=== PATIENT | female | born 1985 | race Caucasian/White ===

== ENCOUNTER 2016-05-19 13:51 | Emergency (ER) | payer SELFPAY ==
[2016-05-19] MEDS ORDERED: ACETAMINOPHEN 325 MG TABLET PO ONE (14:01)
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
[2016-05-19 17:26] VITALS: BP 107/59
== END 2016-05-19 17:26 | disposition home or self-care (01) ==
LOC: ER 13:51
DX: M25.511 Pain in right shoulder (principal); X50.0XXA Overexertion from strenuous movement or load, initial encounter; Y93.B3 Activity, free weights; Y92.39 Other specified sports and athletic area as the place of occurrence of the external cause; Z87.828 Personal history of other (healed) physical injury and trauma; J45.909 Unspecified asthma, uncomplicated
CPT/HCPCS: 99283

== ENCOUNTER 2016-12-08 23:08 | Emergency (ER) | payer SELFPAY ==
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
[2016-12-09 00:07] LABS: ABSOLUTE EOSINOPHILS # (AUTO) 0.1 10^3/uL (0.0-0.6); ABSOLUTE LYMPHOCYTES (AUTO) 1.2 10^3/uL (0.5-4.7); ABSOLUTE MONOCYTES (AUTO) 0.9 10^3/uL (0.1-1.4); ABSOLUTE NEUT (AUTO) 8.5 10^3/uL (1.7-8.2); BASOPHILS % (AUTO) 0.3 % (0-2); EOSINOPHILS % (AUTO) 0.5 % (0-6); HEMATOCRIT 38.5 % (36.0-47.0); HEMOGLOBIN 12.9 g/dL (12.0-15.5); HGB HCT DIFFERENCE 0.2; LYMPHOCYTES % (AUTO) 11.3 % (13-45); MEAN CORPUSCULAR HEMOGLOBIN 30.4 pg (27.0-33.4); MEAN CORPUSCULAR HGB CONC 33.5 g/dL (32.0-36.0); MEAN CORPUSCULAR VOLUME 91 fl (80-97); MONOCYTES % (AUTO) 8.6 % (3-13); RED BLOOD COUNT 4.23 10^6/uL (3.72-5.28); RED CELL DISTRIBUTION WIDTH 13.1 % (11.5-14.0); SEGMENTED NEUTROPHILS % (AUTO) 79.3 % (42-78); WHITE BLOOD COUNT 10.7 10^3/uL (4.0-10.5)
[2016-12-09 00:11] LABS: PROTHROMBIN TIME 15.2 SEC (11.4-15.4)
[2016-12-09 00:12] LABS: PARTIAL THROMBOPLASTIN TIME 44.5 SEC (23.5-35.8)
[2016-12-09 00:14] LABS: D-DIMER 0.62 ug/mL (0.00-0.50)
[2016-12-09 00:18] LABS: ALANINE AMINOTRANSFERASE 19 U/L (9-52); ALBUMIN 3.8 g/dL (3.5-5.0); ALKALINE PHOSPHATASE 64 U/L (38-126); ANION GAP 10 (5-19); ASPARTATE AMINO TRANSFERASE 14 U/L (14-36); BILIRUBIN,DIRECT 0.3 mg/dL (0.0-0.4); BILIRUBIN,TOTAL 0.8 mg/dL (0.2-1.3); BLOOD UREA NITROGEN 8 mg/dL (7-20); CALCIUM 9.6 mg/dL (8.4-10.2); CARBON DIOXIDE 30 mmol/L (22-30); CHLORIDE 96 mmol/L (98-107); CREATININE RESULT 0.79 mg/dL (0.52-1.25); GLUCOSE 107 mg/dL (75-110); POTASSIUM 3.7 mmol/L (3.6-5.0); TOTAL PROTEIN 6.8 g/dL (6.3-8.2)
[2016-12-09 01:10] LABS: APPEARANCE,URINE SLIGHTLY-CLOUDY; BILIRUBIN,URINE NEGATIVE (NEGATIVE); GLUCOSE, URINE NEGATIVE (NEGATIVE); KETONES,URINE NEGATIVE (NEGATIVE); LEUKOCYTE ESTERASE,URINE NEGATIVE (NEGATIVE); NITRITE,URINE NEGATIVE (NEGATIVE); PROTEIN,URINE NEGATIVE (NEGATIVE); URINE SPECIFIC GRAVITY 1.012; UROBILINOGEN,URINE NEGATIVE mg/dL (<2.0)
[2016-12-09 01:20] LABS: URINE BARBITURATES SCREEN NEGATIVE; URINE METHADONE SCREEN NEGATIVE; URINE OPIATES LOW UNCONFIRMED POSITIVE; URINE PHENCYCLIDINE SCREEN NEGATIVE
[2016-12-09] MEDS ORDERED: NORMAL SALINE 1000 ML 1,000 ML IV ONE (01:43)
--- NOTE | 2016-12-09 01:46 | RADIOLOGY REPORT (SQ) ---
EXAM DESCRIPTION: CTA CHEST COMPLETED DATE/TIME: 12/09/2016 1:25 am REASON FOR STUDY: lower extremity, facial edema, eval central clot COMPARISON: None. TECHNIQUE: CT scan of the chest performed using helical scanning technique with dynamic intravenous contrast injection. Images reviewed with lung, soft tissue and bone windows. Reconstructed coronal and sagittal MPR images reviewed. Additional 3 dimensional post-processing performed to develop Maximal Intensity Projection images (VT P). All images stored on PACS. All CT scanners at this facility use dose modulation, iterative reconstruction, and/or weight based d osing when appropriate to reduce radiation dose to as low as reasonably achievable (ALARA). [facility]: Dose Right [facility]: CareDose [facility]: Dose Right [facility]: Teradose 4D [facility]: [employer] CONTRAST TYPE AND DOSE: contrast/concentration: Isovue 370.00 mg/ml; Total Contrast Delivered: 100.0 ml; Total Saline Delivered: 65.1 ml RENAL FUNCTION: None required. The patient is less than 50 years old. RADIATION DOSE: 942 LIMITATIONS: As below. FINDINGS: LUNGS AND PLEURA: No masses, infiltrates, pneumothorax. No pleural effusions, calcificati ons. 0.3 cm likely benign ground-glass nodularity of the right mid lung, image 108 of series 3 ; no routine follow-up is recommended. AORTA AND GREAT VESSELS: No aneurysm or dissection. HEART: No pericardial effusion. PULMONARY ARTERIES: No emboli visualized in the main pulmonary arteries or the segmental branches. P ulmonary arterial enhancement measures 214 Hounsfield units and small streak artifact somewhat limiti ng sensitivity-specificity. HILAR AND MEDIASTINAL STRUCTURES: Mild mediastinal lymphadenopathy includes a 1.3 x 1.0 cm lymph node of the aortopulmonary fossa, image 93 of series 3. HARDWARE: None in the chest. UPPER ABDOMEN: No significant findings. Limited exam. THYROID AND OTHER SOFT TISSUES: No masses. No adenopathy. BONES: No acute or significant finding. 3D MIPS: Confirm above findings. OTHER: No other significant finding. IMPRESSION: No acute cardiopulmonary findings. NO PULMONARY EMBOLI. Limitation. COMMENT: Fleischner Criteria for Ground Glass Nodules: <6mm ground glass single nodule: No routine followup TECHNICAL DOCUMENTATION: JOB ID: [id number] Quality ID # [id number]: Final reports with documentation of one or more dose reduction techniques (e.g., Au tomated exposure control, adjustment of the mA and/or kV according to patient size, use of iterative reconstruction technique) 2010 [id number]- All Rights Reserved
--- NOTE | 2016-12-09 01:56 | RADIOLOGY REPORT (SQ) ---
EXAM DESCRIPTION: CT FACIAL AREA WITH COMPLETED DATE/TIME: 12/09/2016 1:25 am REASON FOR STUDY: r sided facial edema COMPARISON: None. TECHNIQUE: Post contrast images through the facial bones and orbits windowed for bone and soft tissu e. Additional coronal and sagittal reconstructed images reviewed. All images stored on PACS. All CT scanners at this facility use dose modulation, iterative reconstruction, and/or weight based d osing when appropriate to reduce radiation dose to as low as reasonably achievable (ALARA). [facility]: Dose Right [facility]: CareDose [facility]: Dose Right [facility]: Teradose 4D [facility]: [place] CONTRAST TYPE AND DOSE: 100 cc Isovue 370- low osmolar. RENAL FUNCTION: None required. The patient is less than 50 years old. RADIATION DOSE: Up-to-date CT equipment and radiation dose reduction techniques were employed. CTDIv ol: 20.3 mGy. DLP: 942 mGy-cm. . LIMITATIONS: None. FINDINGS: FACIAL BONES: No fracture or bone lesion. ORBITS: Intact. No fracture. Symmetric intact globes and retroorbital soft tissues. PARANASAL SINUSES: Clear. No significant mucosal thickening, mass or fluid. No nasal polyps. Maxilla ry sinus outlets are patent. SOFT TISSUES: Moderate bilateral cervical lymphadenopathy and bilateral submandibular lymphadenopathy , right more than left, includes a right submandibular lymph node measuring 1.8 x 1.1 cm, image 46 of series 3, 82.0 by 1.0 cm right suprahyoid cervical lymph node posterior to the jugular vein, image 3 9 of series 3, and 3-4 asymmetric subcentimeter likely lymph nodes of the right parotid space, image 22 of series 3. INFERIOR BRAIN: Limited view. No acute findings. OTHER: No other significant finding. IMPRESSION: Moderate lymphadenopathy includes bilateral cervical, bilateral submandibular, and likel y right parotid lymph nodes, right more than left. Infectious, inflammatory, and neoplastic processe s are in the differential diagnosis. TECHNICAL DOCUMENTATION: JOB ID: [id number] Quality ID # [id number]: Final reports with documentation of one or more dose reduction techniques (e.g., Au tomated exposure control, adjustment of the mA and/or kV according to patient size, use of iterative reconstruction technique) 2010 [employer] All Rights Reserved
[2016-12-09] MEDS ORDERED: VANCOMYCIN HCL INJ 1000 MG VIAL IV ONE (02:01)
[2016-12-09] MEDS ORDERED: PIPERACILLIN/TAZOBACTAM 3.375 GM VIAL IV ONE (02:01)
[2016-12-09 02:26] LABS: TROPONIN I < 0.012 ng/mL
--- NOTE | 2016-12-09 08:16 | EKG REPORT ---
SEVERITY:- BORDERLINE ECG - SINUS TACHYCARDIA PROBABLE LEFT ATRIAL ABNORMALITY BORDERLINE T WAVE ABNORMALITIES : Confirmed by: Herminio Sanchez MD 09-Dec-2016 08:16:05
[2016-12-09 13:46] VITALS: BP 110/68
== END 2016-12-09 13:20 | disposition short-term general hospital (02) ==
LOC: ER 23:08
DX: R22.0 Localized swelling, mass and lump, head (principal); R60.9 Edema, unspecified; I48.91 Unspecified atrial fibrillation
CPT/HCPCS: 93005; 99291; 96365; 96367; 36415; 87040; 84703; 85025; 85610; 85730; 80053; 81001; 84484; 80307; 85379; 83880; 70487; 71275; 93010; J7030; J3370; J2543